=== PATIENT | male | born 1995 | race Two or more races ===

== ENCOUNTER 2021-07-29 11:12 | Inpatient (IN) | payer MEDICAID ==
[2021-07-29] VITALS (23 sets, daily range): BP systolic 122–214; BP diastolic 61–116
[~2021-07-29] VITALS: Ht 162.6 cm; Wt 78.6 kg
[2021-07-29] MEDS ORDERED: ROCURONIUM BROMIDE 50 MG/5 ML IV ONE (11:15)
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
[2021-07-29] MEDS ORDERED: NALOXONE PREFILLED SYRINGE 2 MG/2 ML SYRINGE ONE (11:18)
--- NOTE | 2021-07-29 11:29 | NUR ---
RT PATIENT ORALLY INTUBATED BY ER DOCTOR WITH 7.0 ETT SECURED AT 21 CM AT THE LIP. POSITIVE COLOR CHANGE WITH CO2 DETECTOR. APPLICATION SECURITY ENGINEER DONE. BILAT BREATH SOUNDS ON AUSCULTATION. ETT SECURED BY ANCHOR FAST. PLACED PT ON FOLLOWING SETTINGS PER MD ORDER: AC 12, 500, 60%, PEEP +5. VENT PLUGGED INTO RED OUTLET. ALARMS ON AND WORKING PROPERLY. AMBU BAG AT HEAD OF BED. NO SIGNS OF DISTRESS NOTED AT THIS TIME. WILL CONTINUE TO MONITOR THE PATIENT CLOSELY. Addendum: 07/29/21 at 1315 by NIECY JUAREZ RT Amended: Links added.
[2021-07-29] MEDS ORDERED: PROPOFOL 100 ML ONE ×2 (11:31→14:42)
--- NOTE | 2021-07-29 11:34 | NUR ---
DR. GUZMAN AT BEDSIDE; WITH ORDERS FOR INTUBATION
--- NOTE | 2021-07-29 11:36 | NUR ---
ICU BED REQUESTED.
--- NOTE | 2021-07-29 11:49 | NUR ---
OROGASTRIC TUBE INSERTED AT 55'. PLACEMENT WAS CONFIRMED BY GASTRIC CONTENT AND XRAY.
[2021-07-29 11:57] LABS: BASOPHILS # (AUTO) 0.1 K/uL (0.0-0.2); BASOPHILS % (AUTO) 0.5 % (0.0-2.0); EOSINOPHILS % (AUTO) 0.3 % (0.0-6.0); HEMATOCRIT 52 % (39-51); HEMOGLOBIN 17.9 g/dL (13.5-17.5); LYMPHOCYTES # (AUTO) 1.2 K/uL (0.8-4.8); LYMPHOCYTES % (AUTO) 7.9 % (20.0-44.0); MEAN CORPUSCULAR HGB CONC 35 g/dl (31.0-36.0); MEAN CORPUSCULAR VOLUME 89 fL (80-96); MONOCYTES # (AUTO) 0.6 K/uL (0.1-1.30); MONOCYTES % (AUTO) 3.9 % (2.0-12.0); NEUTROPHILS # (AUTO) 13.6 K/uL (1.8-8.9); NEUTROPHILS % (AUTO) 87.4 % (43.0-81.0); PLATELET COUNT (AUTO) 494 K/uL (150-450); RED BLOOD CELL COUNT(AUTO) 5.79 MIL/uL (4.5-6.0); WHITE BLOOD COUNT (AUTO) 15.6 K/uL (4.3-11.0)
[2021-07-29] MEDS ORDERED: ROCURONIUM BROMIDE 100 MG/10 ML VIAL IV ONE (12:00)
[2021-07-29] MEDS ORDERED: PROPOFOL 100 ML IV ONE (12:00)
--- NOTE | 2021-07-29 12:00 | NUR ---
DR GUZMAN AND RT AT PT BEDSIDE. DR GUZMAN GAVE VERBAL ORDERED FOR INTUBATION. 1128 PER VERBAL ORDER FROM DR. GUZMAN NEVAEH 70MG IVP ADMINISTERED. 1129 PT INTUBATED, 7 INCHES, 21 INCHES DOWN. PT ON MECHANICAL VENTILATION AC 12, VT 500, FIO2 60%, PEEP 5.9. PLACEMENT VERIFIED BY X RAY. VS STABLE AFTER INTUBATION. TOLERATING WELL.
--- NOTE | 2021-07-29 12:02 | NUR ---
ADMISSION PACKET SUBMITTED.
--- NOTE | 2021-07-29 12:07 | NUR ---
PT TAKEN TO CT VIA ACLS PRTOCOL WITH RT
--- NOTE | 2021-07-29 12:14 | NUR ---
PT RETURNED FROM CT VIA ACLS PROTOCOL WITH RT
[2021-07-29 12:22] LABS: ALANINE AMINOTRANSFERASE 75 U/L (12-78); ALBUMIN 4.5 g/dL (3.4-5.0); ALKALINE PHOSPHATASE 102 U/L (46-116); ASPARTATE AMINOTRANSFERASE 34 U/L (15-37); BILIRUBIN,DIRECT 0.3 mg/dL (0.0-0.2); BILIRUBIN,TOTAL 1.7 mg/dL (0.2-1.0); CARBON DIOXIDE 22 mmol/L (21-32); CHLORIDE 103 mmol/L (98-107); CREATININE 0.9 mg/dL (0.6-1.3); GLUCOSE 142 mg/dL (74-106); POTASSIUM 3.3 mmol/L (3.5-5.1); SODIUM SERUM 139 mmol/L (136-145); TOTAL PROTEIN, SERUM 8.8 g/dL (6.4-8.2); UREA NITROGEN, BLOOD 13 mg/dL (7-18)
[2021-07-29 12:23] LABS: BILIRUBIN,URINE SMALL (NEGATIVE); COLOR,URINE YELLOW (YELLOW); LEUKOCYTE ESTERASE ,URINE NEGATIVE (NEGATIVE); NITRITE, URINE NEGATIVE (NEGATIVE); PROTEIN,URINE 30 mg/dl (NEGATIVE); UGLUCOSE NEGATIVE (NEGATIVE)
[2021-07-29 12:25] LABS: ACETAMINOPHEN 0 ug/ml (10-30)
[2021-07-29 12:30] LABS: ALCOHOL, BLOOD < 3 mg/dL (0-0)
--- NOTE | 2021-07-29 12:33 | NUR ---
COVID ANTIGEN SWAB DONE AND SENT TO THE LAB
[2021-07-29 12:58] LABS: BACTERIA,URINE None seen /HPF (None Seen); RBC,URINE 0-2 /HPF (0-2); SQUAMOUS EPITHELIAL CELL,UR Rare /HPF (None Seen); WBC,URINE 0-2 /HPF (0-3)
[2021-07-29 12:59] LABS: MUCUS,URINE Few /LPF (None Seen)
[2021-07-29] MEDS ORDERED: NALOXONE PREFILLED SYRINGE 2 MG/2 ML SYRINGE IV ONE (13:00)
--- NOTE | 2021-07-29 13:13 | NUR ---
BED 257 PER NURSING KINESEOLOGIST.
--- NOTE | 2021-07-29 13:21 | NUR ---
REPORT GIVEN TO NURSE LARA FOR GAGE
--- NOTE | 2021-07-29 14:06 | NUR ---
AWAITINGG FOR NURSING ADMIN TO NOTIFY ER WHEN PT CAN BE TRANSFERRED TO ICU
[2021-07-29] MEDS ORDERED: MAG HYDROX/AL HYDROX/SIMETH 30 ML UDC PO PRN (14:30)
[2021-07-29] MEDS ORDERED: MAGNESIUM HYDROXIDE 30 ML UDC PO PRN (14:30)
[2021-07-29] MEDS ORDERED: Z GUARD REMEDY 2 OZ OINT TP PRN (14:30)
[2021-07-29] MEDS ORDERED: ONDANSETRON HCL/PF 4 MG/2 ML VIAL IVP PRN (14:30)
[2021-07-29] MEDS ORDERED: ACETAMINOPHEN 325 MG TABLET PO PRN (14:30)
--- NOTE | 2021-07-29 15:19 | NUR ---
PT TRANSFERRED TO ICU 257 VIA ACLS PROTOCOL WITH RT. PT TOLERATED TRANSFER WELL AND SEDATED ON PROPOFOL. VSS.
[2021-07-29] MEDS: IV NS 0.9% 1,000 ML IV PRN (15:30)
--- NOTE | 2021-07-29 15:30 | NUR ---
RN NOTES PATIENT ADMITTED FROM ER WITH ETT/VENT SETTING, NO ACUTE RESPIRATORY DISTRESS,PATIENT TOLERATING SETTING WELL AC-12, PEEP-5, FIO2- 60%, TV-500. HR -58SR, SKIN ASSESSMENT DONE INTACT, PATIENT HAS PSORIASIS ON FOOT DRY. FINK DRAINING WELL, PATIENT GETTING SEDATION DIPRIVAN 55MCG/KG/HR INTACT ON LEFT AC AREA . T-93 ON JOB HUGGER, STARTED NS @125ML/HR. ASSIST TURN And REPOSTION Q 2 HR. OGT INTACT, AND CLAMPED.
--- NOTE | 2021-07-29 15:34 | NUR ---
pt. received from ER with of 7.0 et tube secured @ 21 cm lipline. Pt. use same mechanical ventilator with following parameters: ac 12, vt 500, fio2 60%, peep +5. vent plugged into red outlet with alarms on and functioning. brandon @ bedside. Addendum: 07/29/21 at 1542 by SUNSHINE YOO RT Amended: Links added.
--- NOTE | 2021-07-29 16:00 | NUR ---
RN NOTES ABG DONE , ACCORDING ABG RESULT RT DECREASED FIO2-40%.
[2021-07-29 16:02] LABS: ABG BASE EXCESS -5.4 mmol/L; ABG OXYGEN SATURATION 99.1 % (92.0-98.5); ABG PCO2 37.7 mmHg (35.0-45.0); ABG PH 7.336 (7.350-7.450); ABG PO2 278.7 mmHg (75.0-100.0); AaDO2 107.6 mmHg; COHb 0.2 % (0.5-1.5); MetHb 0.6 % (0.0-1.5); O2Hb 98.3 % (94.0-97.0); PEEP,BG 5 cm H2O; SITE, ABG Right Radial; VT, ABG 500 mL
--- NOTE | 2021-07-29 16:09 | NUR ---
decreased fio2 from 60% to 40% due to 279 pao2 and 100% spo2. rn notified on vent changes made. Addendum: 07/29/21 at 1610 by SUNSHINE YOO RT Amended: Links added.
[2021-07-29] MEDS: ENOXAPARIN SODIUM 40 MG/0.4 ML DISP.SYRIN SQ SCH (17:20)
[2021-07-29] MEDS: PROPOFOL 100 ML IV PRN ×3 (17:50→22:50)
--- NOTE | 2021-07-29 18:30 | NUR ---
RN NOTES PATIENT STABLE, SEDATED WELL, NO ACUTE RESPIRATORY DISTRESS, FINK OUTPUT WAS 200ML, INFUSING DIPRIVAN 60MCG/KG/HR, AND NS@125ML/HR. ASSIST TURN AND REPOSTION Q 2 HR, PATIENT STILL ON JOB HUGGER T-96.7F. ENDORSED ONCOMING NURSE FOLLOW PLAN OF CARE.
--- NOTE | 2021-07-29 20:00 | NUR ---
ICU NOTES Received patient intubated to full vent support and sedated on Diprivan gtt at 65 mcg.DX:MULTI SUBSTANCE ABUSE,HYPOXIC RESPIRATORY FAILURE and TOXIC ENCEPHALOPATHY.SR per monitor. On Joslyn husaúl latest temp 96.8.OGT clamped kept npo as ordered.IVF infusing well.FC to gravity. Turned and repositioned.Cotinue monitoring.
--- NOTE | 2021-07-29 21:20 | NUR ---
ICU NOTES Patient grandmother Zhane visiting patient and updated of patient status and plan of care.Verbalized understanding.Zhane .
--- NOTE | 2021-07-29 23:30 | NUR ---
ICU NOTES Patient awake sitting up on bed very agitated trying to pull out the ET tube..Diprivan gtt titrated per protocol.Bilateral soft wrist restraints in place.Cherelle Castro NP notified orders received and carried out.
[2021-07-30] VITALS (16 sets, daily range): BP systolic 124–161; BP diastolic 56–127
[2021-07-30] MEDS ORDERED: LORAZEPAM INJ 2 MG/ML VIAL IV PRN
[2021-07-30] MEDS: IV NS 0.9% 1,000 ML IV PRN ×2 (00:34→10:44)
[2021-07-30] MEDS: PROPOFOL 100 ML IV PRN ×3 (01:52→06:10)
--- NOTE | 2021-07-30 03:00 | NUR ---
ICU NOTES Patient remains sedated.Temp 100.1 rectally.Bed bath rendered.Complete linens changed.Turned and repositioned.No distress noted.
[2021-07-30 04:54] LABS: BASOPHILS % (AUTO) 0.2 % (0.0-2.0); EOSINOPHILS % (AUTO) 0.2 % (0.0-6.0); HEMATOCRIT 49 % (39-51); HEMOGLOBIN 16.9 g/dL (13.5-17.5); LYMPHOCYTES # (AUTO) 1.1 K/uL (0.8-4.8); LYMPHOCYTES % (AUTO) 8.2 % (20.0-44.0); MEAN CORPUSCULAR HGB CONC 35 g/dl (31.0-36.0); MEAN CORPUSCULAR VOLUME 88 fL (80-96); MONOCYTES # (AUTO) 1.1 K/uL (0.1-1.30); MONOCYTES % (AUTO) 7.7 % (2.0-12.0); NEUTROPHILS # (AUTO) 11.5 K/uL (1.8-8.9); NEUTROPHILS % (AUTO) 83.7 % (43.0-81.0); PLATELET COUNT (AUTO) 443 K/uL (150-450); RED BLOOD CELL COUNT(AUTO) 5.54 MIL/uL (4.5-6.0); WHITE BLOOD COUNT (AUTO) 13.7 K/uL (4.3-11.0)
[2021-07-30 05:07] LABS: ALBUMIN 3.8 g/dL (3.4-5.0); BILIRUBIN,TOTAL 1.2 mg/dL (0.2-1.0); CALCIUM, SERUM 8.6 mg/dL (8.5-10.1); CREATININE 0.9 mg/dL (0.6-1.3); MAGNESIUM 2.4 mg/dL (1.8-2.4); PHOSPHORUS 3.6 mg/dL (2.5-4.9); POTASSIUM 3.9 mmol/L (3.5-5.1); TOTAL PROTEIN, SERUM 7.6 g/dL (6.4-8.2)
--- NOTE | 2021-07-30 06:30 | NUR ---
ICU NOTES Patient very sedated Diprivan gtt titrated down per protocol.Tolerating vent settings well.SPO2 99%. -100%. Suctioned secretions prn.Oral care done.SR.Minimal urine output.No bm noted.Turned and repositioned.Will endorse to day shift for further care and management.No acute distress noted.
--- NOTE | 2021-07-30 07:00 | NUR ---
RN NOTES RECEIVED PT ON BED, INTUBATED , SEDATED, ON DIPRIVAN AT 70MCG/KG/MIN, ON TELE SR HR IN 80'S , FINK DRAINING TO GRAVITY, OGT CLAMPED, NS AT 125CC/HR RUNNING , SR UP x3, CALL LIGHT WITHIN EASY REACH BED LOCKED AND IN LOWEST POSITION, CONTINUE TO MONITOR.
--- NOTE | 2021-07-30 08:45 | NUR ---
RT NOTE PT SELF EXTUBATED. CHARGE NURSE DRAKE AND MD CRUZEG AWARE. PT CAN VERBALIZE. BILATERAL BREATHE SOUNDS AND CHEST RISE NOTED. PT PLACED ON 2L NASAL CANNULA. NO SOB NOTED AT THIS TIME.
--- NOTE | 2021-07-30 08:45 | NUR ---
RN NOTES PT SELF EXTUBATED, PT TOOK RESTRAINS OFF AND STATED WANTS TO GO HOME . MD NOTIFIED, PT IS BREATHING NORMAL , PT PLACED ON 2L O2 N/C , O2 SAT WNL, CONTINUE TO MONITOR.
[2021-07-30 08:51] LABS: ABG BASE EXCESS -2.8 mmol/L; ABG OXYGEN SATURATION 99.1 % (92.0-98.5); ABG PCO2 32.8 mmHg (35.0-45.0); ABG PH 7.416 (7.350-7.450); ABG PO2 194.1 mmHg (75.0-100.0); AaDO2 53.4 mmHg; COHb 0.1 % (0.5-1.5); MetHb 0.5 % (0.0-1.5); O2Hb 98.5 % (94.0-97.0); PEEP,BG 5 cm H2O; SITE, ABG Right Radial
[2021-07-30] MEDS ORDERED: PANTOPRAZOLE 40 MG VIAL IV SCH (09:00)
[2021-07-30] MEDS ORDERED: LORAZEPAM 1 MG TABLET PO PRN (10:00)
--- NOTE | 2021-07-30 11:20 | NUR ---
SS Consult: SS Consult requested for possible suicide attempt. The pt. is a 25 year old Afro-Latin male in ICU for OD. Pt.'s toxicology report shows pt. used Methamphetamine & Cannabinoids. Upon SS consult, the pt. is Alert & oriented x3. Pt. appears well-groomed and makes good eye contact. Pt. is guarded and refused to answer financial questions. Pt.'s has dysphoric mood, with depressed affect and is irritable. Pt.'s speech is WNL. Pt. denies current SI/HI and denies current hallucinations. Pt. reports he does not know why he is in the hospital and states the last thing he remembers is walking his dog. Per EMR, pt. was found slumped over in his car with altered mental status. SW explored if pt. intentionally overdosed as a suicide attempt. Pt. denies, pt. also denies previous suicide attempts or previously harming himself. However, per EMR, pt.'s "friend" found a alleged suicide note. RUBENS explored pt.'s mental health Hx. Pt. states he has been diagnosed with Schizoaffective disorder Bipolar Type and states he is not on a ny psychotropic medications. Pt. states he is not under the care of a psychiatrist or therapist. SW provided motivational interviewing and emotional support. Pt. is open to therapy & psychiatry services. SW provided resources. RUBENS explored pt.'s living situation. Pt. states he resides at [[address] [place] [address] [address] [facility], [address]; [phone]] with his friend, Chris Ingram [phone]. However, per RN Note, Scott is the pt.'s fiance. Pt. other support system is his grandmother, Zhane [phone]. RUBENS explored pt.'s drug & ETOH use. Pt. states he uses drug but did not want to specify. Pt. states drugs are not a problem for him and refused drug Treatment referral. Pt. became teary eye at the conclusion of interview and SW explored triggers. Pt. states "I have a lot of problems and sometimes I have really good days and other times I feel lethargic and depressed". SW used active listening and validated his situation. Plan: RUBENS will call pharmaceutical process engineer to evaluate patient. RUBENS provided pt. with the following mental health & addiction resources. pt. stated he will follow up and set up psychiatry & counseling services. SW made safety plan with pt. for future. Pt. verbalized that he will seek help with : [facility] Mental Health/Crisis Line........[phone] OR Jessie Olmstead [facility] [[address] [place] [address] ] if he ever feels unsafe. OTHER RESOURCES PROVIDED INCLUDE: Counseling--Outpatient [facility] [address], [place] [address] (Specializes in in-depth psychotherapy for emotional distress: anxiety, depression, interpersonal conflicts, life transitions, childhood abuse) [facility] [address] [place] [address] (Assist with solving problem marital difficulties, separation & divorce, aging parents, & grief, chronic & terminal illness) [facility] [address] [place] [address] (Deal with loss & grief, anxiety, marital difficulties) Homebound/Mental Health Services [address], [address] [place] [address] (Provide in-home mental services to people who are incapable of leaving their homes) [facility] [address] [facility] [address] [place] [address] [facility] [address] [place], [place] [id number] Mental Health Services [facility] [place] [address] [place] [address] Services: Outpatient therapy for children, teens, young adults, adults, older adults, and families; Psychiatric services, medication support Psychiatric Outpatient Services [facility] Partial Hospitalization and Intensive Outpatient Program (Managed Care and [place] Only)[address] [facility]. [facility] [phone] [facility] Partial Hospitalization and Outpatient [id number] [facility] [place], [place] [phone] [facility] Partial Hospitalization and Outpatient [id number] Simón Brito [facility] [place], [place] [phone] [facility] [id number] [place], [place] [phone] [facility] Simón Brito Partial Hospitalization and Outpatient [id number] [facility] Simón [place], [phone] Crisis and Hotline Telephone Numbers 24-Hour service unless stated [place] Crisis Hotlines: [facility] Mental Health/Crisis Line........620.400.4720 Suicide Prevention Center (24 Hours).......145.404.8523 Suicide Prevention Crisis Center.......[phone] (24 Hours) Assaults Against Women Hotline.........862.679.7723 (24 Hours -- [facility]) Women and Children Crisis Chcf...........[phone] (24 Hours) Child Abuse Hotline............552.495.1412 ([facility] Rape Treatment Center (24 Hours)..........[phone] Alcoholics Anonymous (24 Hours)..........[phone] Cocaine Anonymous (24 Hours)............[phone] Narcotics Anonymous (24 Hours)..........566.273.5789 Jessie Olmstead [facility] [address], [place] [address] ADDICTION RESOURCES For Drugs and Alcohol [facility] Substance Abuse Helpline(SASH)-[facility] Outpatient treatment, residential treatment, recovery support for youth and adults [facility] www.actionfamilycounsZakazaka.Zayo [facility] Teen programs for drug/alcohol education and support [facility] [place]. Program for adults, sliding scale provides support and education [place] www.Stadionaut.org [place]; Outpatient/residential treatment programs; transition to sober living Cri[facility]Help www.cri-help.org [place]; Outpatient and residential treatment programs; transition to sober living I-ADARP [facility] [place] [facility] Sim[facility]; Outpatient education and supportive programs for teens and adults [facility] www.oasiswomensrecnek center for health and wellnessy.org [place]; Residential treatment and work program for females only [facility] www.[facility].Agenda [place]: Outpatient/residential treatment program for teens and young adults [facility] www.[facility].org [facility] [place] Detox, inpatient, outpatient for adults and youth [facility], [facility]. [place]; Outpatient programs and referrals to community residential programs. Alcoholics Anonymous -SFV information and meeting and schedules www.aa-intergroup.org Fz-Jzge-Rxmfmgo https://al-anon.org/ [place] support groups for family of alcoholics. Marijuana Anonymous www.madistrict6.org -SFV listing of meetings Narcotics Anonymous www.na.org SOBER LIVING RESOURCES [facility] www.soberhousing.net A non-profit agency that provides resources to recovery and sober living homes throughout [place], [place], [facility] Sober Living Homes: A Work in ProgressEun [facility] [place] [facility], [place] [facility] Simón Brito Womens Sober Living Homes: [facility] [phone] [place], [place] [facility]: [facility]
--- NOTE | 2021-07-30 11:23 | NUR ---
RUBENS called special needs teacher, RUBENS called special needs teacher, Art C [phone] to evaluate this pt. for possible suicide attempt by OD. Art stated he will see pt. as soon as possible.
--- NOTE | 2021-07-30 12:30 | NUR ---
RN NOTES PT CLEAR TO GO HOME PER PSYCH EVAL.
[2021-07-30] MEDS: ENOXAPARIN SODIUM 40 MG/0.4 ML DISP.SYRIN SQ SCH (13:58)
--- NOTE | 2021-07-30 15:00 | NUR ---
RN NOTES PT REFUSING TO HAVE VSS TAKEN , STATED WANTS TO LEAVE AMA. MD NOTIFIED .
--- NOTE | 2021-07-30 15:36 | NUR ---
RN NOTES PT REFUSED TO HAVE IV ACCESS , AND FOLY , AND WANTS TO LEAVE AMA , IV SITES AND FINK D/GUILLERMINA, DR SEVILLA NOTIFIED .
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
== END 2021-07-30 16:01 | disposition left against medical advice (07) | DRG 817 ==
LOC: ER 11:14 → ICU 13:25
PROVIDERS: ADMIT Internal Medicine; ATTEND Internal Medicine
PROC: 5A1945Z Respiratory Ventilation, 24-96 Consecutive Hours (ICD-10-PCS; principal; 2021-07-29)
PROC: 0BH18EZ Insertion of Endotracheal Airway into Trachea, Via Natural or Artificial Opening Endoscopic (ICD-10-PCS; 2021-07-29)
DX: T43.622A Poisoning by amphetamines, intentional self-harm, initial encounter (principal); J96.01 Acute respiratory failure with hypoxia; J69.0 Pneumonitis due to inhalation of food and vomit; G92.9 Unspecified toxic encephalopathy; F32.A Depression, unspecified; Y92.89 Other specified places as the place of occurrence of the external cause; Z20.822 Contact with and (suspected) exposure to COVID-19; E87.6 Hypokalemia; E80.6 Other disorders of bilirubin metabolism; F19.10 Other psychoactive substance abuse, uncomplicated; Z91.51 Personal history of suicidal behavior; Z53.29 Procedure and treatment not carried out because of patient's decision for other reasons; F25.9 Schizoaffective disorder, unspecified; F41.9 Anxiety disorder, unspecified; G31.84 Mild cognitive impairment of uncertain or unknown etiology; F12.229 Cannabis dependence with intoxication, unspecified
CPT/HCPCS: 31720; 36415; 36600; 70450-TC; 71045-TC; 76700-TC; 80048-TC; 80053-TC; 80076-TC; 81001; 82803-TC; 83735-TC; 84100-TC; 85025-TC; 87081-TC; 94002-TC; 94003-TC; 94760-TC; 94799-TC; 99082-TC; C9113; G0378; G0480; J1650; J2060; J2310; J3490; J7030